=== PATIENT | male | born 1965 | race Hispanic/Latino ===

== ENCOUNTER 2017-06-08 23:09 | Observation (INO) | payer BC ==
[~2017-06-08] VITALS: Ht 167.6 cm; Wt 86.8 kg
--- NOTE | 2017-06-08 23:11 | NUR ---
PT STRAIGHT BACK TO ROOM 9 TO TRIAGE.
--- NOTE | 2017-06-08 23:15 | NUR ---
NOTED PT HAS HR IN 200'S VIA PULSE OX. PLACED PT ON MONITOR AND EKG IN PROGRESS. DR CALLED TO BEDSIDE.
--- NOTE | 2017-06-08 23:36 | NUR ---
THREE UNSUCCESSFUL DOSES OF ADENOSINE GIVEN. PATIENT RATE REMAINS 200. PATIENT IS DIAPHORETIC AND HAVING NAUSEA. NEW ORDERS FOR MEDS RECEIVED.
--- NOTE | 2017-06-08 23:39 | NUR ---
LOPRESSOR GIVEN IV AND HEART RATE IMPROVED TO 140S. PATIENT STATES HE IS FEELING A LITTLE BETTER. MD AWARE AND ORDERS RECEIVED FOR ADDITIONAL LOPRESSOR.
--- NOTE | 2017-06-08 23:47 | NUR ---
SECOND DOSE OF LOPRESSOR GIVEN WITH NO CHANGE IN HEAR RATE. RATE REMAINS IN THE 140S. BP STABLE, PATIENT IS LESS DIAPHORETIC.
[2017-06-08 23:52] LABS: HEMATOCRIT 46.7 % (39.0-50.0); HEMOGLOBIN 16.9 g/dl (14.0-18.0); IMMATURE GRANULOCYTES 0.4 % (0.0-1.0); MEAN CELL VOLUME 96.7 fL CALC (80.0-100.0); MEAN CORPUSCULAR HGB CONC 36.2 g/L CALC (32.0-36.0); NEUT# 4.48 thou/uL (1.82-7.42); RED BLOOD COUNT 4.83 mill/uL (4.70-6.10)
[2017-06-09] VITALS (10 sets, daily range): BP systolic 136–156; BP diastolic 86–98
[2017-06-09 00:04] LABS: ALBUMIN 4.6 g/dL (3.2-5.0); ALKALINE PHOSPHATASE 123 u/l (38-126); ANION GAP 20 (6-22 (CALC)); BILIRUBIN, TOTAL 0.5 mg/dL (0.0-1.4); BUN 9 mg/dL (9-20); BUN/CREATININE RATIO 11 (12-20 (CALC)); CALCIUM 9.9 mg/dL (8.4-10.2); CARBON DIOXIDE 17 mmol/l (22-30); CHLORIDE 104 mmol/l (95-108); CREATININE 0.8 mg/dL (0.7-1.3); GFR > 60 ML/MIN (>=60 (CALC)); GFR FOR AFR.AMER. > 60 ML/MIN (>=60 (CALC)); GLUCOSE 216 mg/dL (75-110); POTASSIUM 3.7 mmol/l (3.5-5.1); SGOT/AST 249 u/l (17-59); SGPT/ALT 196 u/l (21-72); SODIUM 137 mmol/l (137-146); TOTAL PROTEIN 7.9 g/dL (6.3-8.2)
--- NOTE | 2017-06-09 00:12 | NUR ---
Pt reassured that things are going in the right direction. Heart rate is down sarkis 200 to 140's, B/P starting to return to normal. Cardizem given IVP X 1 dose. Re-evaluate in 10 min.
--- NOTE | 2017-06-09 00:31 | NUR ---
Pt medicated with 10 mg Cardizem IVP. Rate starting to come down.
--- NOTE | 2017-06-09 01:16 | NUR ---
Pt resting comfortably, HR in the 80's, denies chest pain or presssure. Normotensive at this time. Urine collected and sent to lab.
--- NOTE | 2017-06-09 01:31 | NUR ---
Pt awaiting results of UA for MD decision for transfer or addmission.
[2017-06-09 01:36] LABS: BARBITURATES NEGATIVE (NEGATIVE); COCAINE NEGATIVE (NEGATIVE); METHADONE NEGATIVE (NEGATIVE); OXCYCODONE NEGATIVE (NEGATIVE); TETRAHYDROCANNABIONOL NEGATIVE (NEGATIVE); TRICYLIC ANTIDEPRESSANTS NEGATIVE (NEGATIVE)
--- NOTE | 2017-06-09 03:30 | NUR ---
52 yr old viet[place] male admitted icu5 as medsurg overflow per stretcher from er. jerzy kurtz rn translated for this food writer. stood to weigh then to bed. denies chest pain, sob, n/v. nuclear monitoring technician shows sinus rhythm. #18 rac saline lock. history obtained per pt & er record. oriented to room. fall precautions initiated.
--- NOTE | 2017-06-09 03:59 | NUR ---
lab results rec'd. dr león notified.
--- NOTE | 2017-06-09 05:58 | NUR ---
dr león returned call. orders rec'd to transfer to [facility].
--- NOTE | 2017-06-09 06:15 | NUR ---
lab here. blood drawn.
--- NOTE | 2017-06-09 06:25 | NUR ---
todd @ [facility] transfer center called & notified of need for transfer. to call this health underwriter back with physician & bed. face sheet faxed.
--- NOTE | 2017-06-09 07:15 | NUR ---
PT RESTING IN BED, ALERT AND ORIENTED SPEAKS SOME ROMANSH AND ABLE TO MAKE NEEDS KNOWN, AM ASSESSMENT COMPLETED, SEE INTERVENTIONS, SKIN WARM DRY AND INTACT, NO BREAKDOWN NOTED, ABD SOFT AND BS ACTIVE, PT DENIES N/V, DENIES CHEST PAIN OR SHORTNESS OF BREATH, PT AWARE OF PLANNED TRANSFER TO [place] ONCE BED ASSIGNMENT OBTAINED, CONSENT OBTAINED EARLIER, TELE CONTINUES READING ST RATE 120'S, NO EDEMA, BP SLIGHTLY ELEVATED, PT EXHIBITS SOME MILD ANXIETY RELATED TO DIAGNOSIS AND PENDING TRANSFER, COMFORT MEASURES PROVIDED, EDUCATION PROVIDED, CALL ADAM WITHIN REACH, SAFETY MEASURES REINFORCED. NPO STATUS EXPLAINED RELATED TO POTENTIAL TREATMENT PLAN AT [facility], PT VERBALIZES UNDERSTANDING, ALL COMMUNICATION DONE VIA NORMA HARRIS TRANSLATING.
--- NOTE | 2017-06-09 07:50 | NUR ---
CALL REC'D FROM MARY AT [facility] TRANSF[facility], AWAIATING BED ASSIGNMENT, ALSO NOITIFED AF MOST RECENT TROPONIN RESULT.
--- NOTE | 2017-06-09 08:25 | NUR ---
BED ASSIGNMENT REC'D FROM MARY AT [facility], [address] BED ASSIGNMENT GIVEN.
--- NOTE | 2017-06-09 08:35 | NUR ---
CALL PLACED TO [facility] SPOKE TO OTTO GAVE PT INFORMATION, ETA 5 TO 10 MINS
--- NOTE | 2017-06-09 08:41 | NUR ---
AT BEDSIDE AWARE OF PLANNED TRASNFER, NEW ORDERS REC'D
--- NOTE | 2017-06-09 08:45 | NUR ---
MEDICATED WITH LOPRESSOR PO ORDERED, PT TOOK WITHOUT INCIDENT
--- NOTE | 2017-06-09 08:51 | NUR ---
CALL PLACED TO [facility], SPOKE TO MARY GAVE HER AN ETA OF AN HOUR TO AN HOUR AND 15 MINS
--- NOTE | 2017-06-09 08:56 | NUR ---
PT TRANSFERRED TO [facility] VIA STRETCHER WITH [facility], ALL BELONGINGS SENT WITH PATIENT.
--- NOTE | 2017-06-09 09:10 | NUR ---
REPORT CALLED TO DASHA AT [facility], , AWARE OF 1000 AM ETA.
== END 2017-06-09 08:55 | disposition short-term general hospital (02) | DRG 310 ==
LOC: ED 23:09 → ED-I 06-09 02:19 → ED 06-09 02:33 → ICU 06-09 02:34 → MS2 06-09 02:34 → ICU 06-09 08:55
PROVIDERS: Emergency Medicine; ADMIT Internal Medicine; ATTEND Internal Medicine
DX: I47.1 Supraventricular tachycardia (principal); G89.29 Other chronic pain; I10 Essential (primary) hypertension; M54.9 Dorsalgia, unspecified; M54.2 Cervicalgia; Z91.14 Patient's other noncompliance with medication regimen
CPT/HCPCS: J1650

== ENCOUNTER 2021-08-03 10:53 | Day surgery (SDC) | payer OTHER ==
[~2021-08-03 10:53] MED LIST: ASPIRIN81 MG PO; CARVEDILOL3.125 MG PO; FOLIC ACID1 MG PO; NORVASC5 M1 PO; SLOW-MAG PO; VITAMIN B-150 MG PO
[2021-08-03 13:29] VITALS: BP 112/75
== END 2021-08-03 14:12 | disposition home or self-care (01) | DRG 951 ==
LOC: ENDO 10:53
PROVIDERS: ATTEND Surgery
PROC: 0DBC8ZX Excision of Ileocecal Valve, Via Natural or Artificial Opening Endoscopic, Diagnostic (ICD-10-PCS; principal; 2021-08-03)
DX: Z12.11 Encounter for screening for malignant neoplasm of colon (principal); K52.9 Noninfective gastroenteritis and colitis, unspecified; K57.30 Diverticulosis of large intestine without perforation or abscess without bleeding; I10 Essential (primary) hypertension